=== PATIENT | female | born 1975 | race Caucasian/White ===

== ENCOUNTER 2016-09-04 15:01 | Outpatient (CLI) | payer BC ==
--- NOTE | 2016-09-04 16:09 | DIAGNOSTIC IMAGING REPORT ---
PROCEDURE: XR HIP 2VW W W/O AP PELVIS-RT INDICATION: BACK PX,HIP JOINT PX,KNEE PX/MORBID OBESITY TECHNIQUE: AP view of the pelvis and hips with lateral view of the right hip. COMPARISON: None. FINDINGS: Right HIP: Osseous structures and joint spaces are normal. PELVIS: Osseous pelvis is normal. IMPRESSION: 1. Negative pelvis and right hip.
--- NOTE | 2016-09-04 16:10 | DIAGNOSTIC IMAGING REPORT ---
PROCEDURE: XR LUMBAR SPINE 2 OR 3 VIEWS INDICATION: BACK PX,HIP JOINT PX,KNEE PX/MORBID OBESITY TECHNIQUE: Three views. COMPARISON: None. FINDINGS: Scattered osteophytes. There is grade 1 spondylolisthesis of L5-S1. IMPRESSION: 1. Grade 1 spondylolisthesis at L5-S1
--- NOTE | 2016-09-04 16:11 | DIAGNOSTIC IMAGING REPORT ---
PROCEDURE: XR KNEE 3 VIEWS - RIGHT INDICATION: BACK PX,HIP JOINT PX,KNEE PX/MORBID OBESITY TECHNIQUE: Three views. COMPARISON: None. FINDINGS: Osseous structures and joint spaces are normal. IMPRESSION: 1. Normal right knee.
== END 2016-09-04 23:00 ==
LOC: XR SRH 15:01
DX: M43.17 Spondylolisthesis, lumbosacral region (principal); M25.561 Pain in right knee; M25.551 Pain in right hip; E66.01 Morbid (severe) obesity due to excess calories